=== PATIENT | female | born 1955 | race African-American/Black ===

== ENCOUNTER 2017-09-30 14:40 | Emergency (ER) | payer OTHER ==
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
[2017-09-30 16:43] LABS: PLATELET COUNT 358 10^3/uL (150-400)
[2017-09-30] MEDS ORDERED: CYCLOBENZAPRINE 10 MG TAB PO ONE (16:54)
[2017-09-30] MEDS ORDERED: IBUPROFEN 600 MG TAB PO ONE (16:54)
[2017-09-30 17:04] VITALS: BP 141/81
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
--- NOTE | 2017-10-02 15:09 | ASMTCMCOM ---
CM Note CM Note Notes: Followed up with [facility] ([phone]) in [place], where pt is followed by Dr Conteh. Spoke w/ DONNA Ray, (Direct: [phone]) at their clinic and relayed the need for patient to get a followup appt in the next couple of days. Flor states she will reach out to patient try to get her an Open Access appt RICARDO. We confirmed the most recent phone # for pt: ([phone]). Flor requested that the pt's ED visit report be faxed for them to review (F: [phone]). This CM attempted to fax via [employer] but Flor said they never received it, so it was re-faxed via fax machine. CM available for further assistance if needed. Date Signed: 10/02/2017 03:08 PM Electronically Signed By:Beatrice Broussard RN
== END 2017-09-30 18:00 | disposition home or self-care (01) ==
DX: S16.1XXA Strain of muscle, fascia and tendon at neck level, initial encounter (principal); S09.90XA Unspecified injury of head, initial encounter; R59.9 Enlarged lymph nodes, unspecified; Y08.89XA Assault by other specified means, initial encounter; Y92.512 Supermarket, store or market as the place of occurrence of the external cause; Y99.8 Other external cause status; Y93.01 Activity, walking, marching and hiking